=== PATIENT | male | born 1990 | race Caucasian/White ===

== ENCOUNTER 2024-03-10 21:06 | Emergency (ER) | payer MEDICAID ==
[~2024-03-10] VITALS: Ht 167.6 cm; Wt 87.0 kg
[2024-03-10 21:30] VITALS: O2SAT 99
[2024-03-11] MEDS: METOCLOPRAMIDE HCL 10MG/2ML VIAL IV ONE (02:02)
[2024-03-11] MEDS: DIPHENHYDRAMINE 12.5MG/5ML UDC PO ONE (02:03)
[2024-03-11] MEDS: KETOROLAC 15MG/ML VIAL IV ONE (02:03)
[2024-03-11] MEDS: SODIUM CHLORIDE 0.9% 1,000 ML IV ONE (02:03)
[2024-03-11] MEDS ORDERED: ASPI-740 PO (03:26)
[2024-03-11] MEDS ORDERED: METO5TAB86 MT (03:26)
[2024-03-11 03:41] VITALS: BP 115/65; PULSE 72; RESP 12; TEMP 99.1
== END 2024-03-11 03:46 | disposition home or self-care (01) ==
LOC: ER 21:06
DX: G43.909 Migraine, unspecified, not intractable, without status migrainosus (principal); R11.0 Nausea; E78.00 Pure hypercholesterolemia, unspecified
CPT/HCPCS: 99284; 96374; 96361; 96375; Q0163; J1885; J2765; J7030